=== PATIENT | female | born 1960 | race Caucasian/White ===

== ENCOUNTER → 2017-02-06 | Outpatient (CLI) | payer OTHER ==
--- NOTE | ~2017-02-06 | CR151 ---
[facility] A Service of [facility] RADIOLOGY TEXT RESULTS PATIENT: PING DENISE LOCATION: [facility] : 62 UNIT #: [id number] AGE: [address]: RODNEY COOLEY APRN SEX: F ORDER DR: [id number] [facility] [address] [place], [place] [address] [id number] O MR#: [id number] Acc #: [id number] NAME: PING DENISE : 1960 SEX: F STUDY DATE/TIME: 02/06/2017 11:05 UNIT: [facility] ROOM: STUDY DESCRIPTION: CR Hip Min 2 Views Rt Attending Physician: Rodney Cooley A.P.R.N. Ordering Physician: Rodney Cooley A.P.R.N. Primary Care Physician: Rodney Cooley A.P.R.N. MEDICAL IMAGING REPORT This report is preliminary unless electronic signature is present EXAM Right hip, 2 views, 02/06/2017. HISTORY Right hip pain for 2 months status post fall down steps. FINDINGS AP and oblique examination of the hip shows adequate mineralization of the bones and a normal anatomic relationship of the femoral head with the acetabulum. There are no hypertrophic changes, fractures, dislocation, or joint capsular distension. No radiopaque foreign body is present about the soft tissues of the hip. IMPRESSION Normal hip. Dictated by... Brando Ruvalcaba M.D. THIS IS AN ELECTRONICALLY VERIFIED REPORT Brando Ruvalcaba M.D. at 02/12/2017 8:07 AM JO-ANN/hallie TD: 02/06/2017 12:12 JOB #: [id number] MEDICAL IMAGING REPORT Page 1 of 1 COPY
--- NOTE | ~2017-02-06 | CR230 ---
[facility] A Service of [facility] & [facility] RADIOLOGY TEXT RESULTS PATIENT: PING DENISE LOCATION: [facility] : 62 UNIT #: [id number] AGE: [address]: RODNEY COOLEY APRN SEX: F ORDER DR: [id number] [facility] [address] [place], [place] [address] [id number] O MR#: [id number] Acc #: [id number] NAME: PING DENISE : 1960 SEX: F STUDY DATE/TIME: 02/06/2017 10:56 UNIT: [facility] ROOM: STUDY DESCRIPTION: CR Shoulder Min 2 View Rt Attending Physician: Rodney Cooley A.P.R.N. Ordering Physician: Rodney Cooley A.P.R.N. Primary Care Physician: Rodney Cooley A.P.R.N. MEDICAL IMAGING REPORT This report is preliminary unless electronic signature is present EXAM Right shoulder 3 views 02/06/2017 HISTORY Right shoulder pain for 2 months status post fall down steps. FINDINGS 3 views of the right shoulder demonstrate no fracture. The bones are normally mineralized. The right glenohumeral and acromioclavicular joints are intact. There is a small calcification along the superolateral aspect of the humeral head which could reflect a degree of rotator cuff degeneration. If this is of clinical concern, consider MRI of the right shoulder. No other soft tissue abnormality is seen. IMPRESSION No acute abnormality involving the right shoulder. Dictated by... Brando Ruvalcaba M.D. THIS IS AN ELECTRONICALLY VERIFIED REPORT Brando Ruvalcaba M.D. at 02/12/2017 8:07 AM JO-ANN/william TD: 02/06/2017 12:08 JOB #: [id number] MEDICAL IMAGING REPORT Page 1 of 1 COPY
== END | disposition home or self-care (01) ==
LOC: CRAD 10:34
DX: M25.551 Pain in right hip (principal); M25.511 Pain in right shoulder
CPT/HCPCS: 73030; 73502